=== PATIENT | male | born 1980 | race Caucasian/White ===

== ENCOUNTER → 2021-06-17 07:48 | Outpatient (CLI) | payer BC, SELFPAY ==
--- NOTE | 2021-06-17 08:00 | SPU_PTH ---
PATIENT: MILES SAHU LOC: [facility]#:[id number] AGE/SX: 45/M ROOM: RE06/17/[address]: Dr. Derrick Finch DO : 1980 BED: DIS: SPEC #: [id number] RECD: 06/17/21 10:00 STATUS: JOSE ENRIQUE MAURICIO #: [id number] KRISTIN: 06/17/21 08:[address]: Derrick Finch DEPT: CYTOLOGY RECD BY: Betty Houston ENTERED: 06/17/21 12:33 SP TYPE: Sputum Cy OTHR DR: Babs Yen NP Tissues: Sputum Procedures: Pap Stain (control) Special Stain Group II Special Stain Group I AFB Stain (control) Cytospin Fluid HEADER OPERATION: Not noted PRE-OP DIAGNOSIS: Pulmonary nodules TISSUE SUBMITTED: Sputum for cytology DIAGNOSIS CYTOLOGY Sputum for cytology (cytospin and smears): Negative for malignant cells. See comment. YUAN:thaddeus 06/18/2021 COMMENT Special stain for acid fast bacilli is negative for organisms; matched control is appropriate. CYTOLOGY STUDY Slides are reviewed. CYTOLOGY GROSS Received is 1 ml of thick white mucoid fluid labeled with the patient's name and and designated per the requisition as sputum. Submitted for cytology preparation. / thaddeus 06/17/2021 TC:5 [facility]: [id number]
[2021-06-17 08:16] LABS: Absolute Lymphocyte Count 0.37 X10^3/uL (0.83-4.51); Absolute Neutrophil Count 2.8 X10^3/uL (2.0-7.7); Basophil# 0.06 X10^3/uL; Basophil% 1.5 % (0-1); Eosinophil# 0.24 X10^3/uL; Eosinophils% 6.2 % (0-5); Hemoglobin 14.6 g/dL (13.0-16.5); Lymphocyte # 0.37 X10^3/ul (0.83-4.51); Lymphocyte % 9.5 % (19-41); Mean Corp Hgb Conc 34.8 g/dL (32-36); Mean Corpuscular Hgb 29.9 pg (27.0-32.0); Mean Corpuscular Volume 85.9 fL (80-94); Mean Platelet Vol. 8.5 fl (6.2-12.0); Monocyte# 0.47 X10^3/uL; Monocyte% 12.1 % (0-10); NRBC Flagged by Analyzer 0 % (0-5); Neutrophil # 2.75 X10^3/uL (2.7-7.7); Neutrophil % 70.7 % (47-70); POSITIVE DIFFERENTIAL YES; Platelet Count 209 K/mm3 (150-450); RBC Distribution Width CV 11.9 % (11.6-14.6); Red Blood Count 4.89 M/mm3 (4.6-6.2); White Blood Count 3.9 K/mm3 (4.4-11.0)
[2021-06-17 08:18] LABS: Acid Fast Stain SEE PATHOLOGY REPORT; Cytology, Body Fluid / CSF SEE PATHOLOGY REPORT
[2021-06-17 08:23] LABS: Differential Indicated SCAN CRITERIA MET
[2021-06-18 14:17] LABS: Pathologist Review Reviewed
== END ==
PROVIDERS: PCP Nurse Practitioner Primary Care; Referring Provider Internal Medicine Critical Care Medicine; Visit Provider Internal Medicine Critical Care Medicine
DX: R91.8 Other nonspecific abnormal finding of lung field (principal)
CPT/HCPCS: 36415; 82164; 85025; 86606; 87385; 88108; 88312; 88313

== ENCOUNTER → 2021-07-29 09:23 | Outpatient (CLI) | payer BC, SELFPAY ==
[2021-07-29 09:50] LABS: Absolute Lymphocyte Count 0.42 X10^3/uL (0.83-4.51); Absolute Neutrophil Count 2.9 X10^3/uL (2.0-7.7); Basophil# 0.07 X10^3/uL; Basophil% 1.7 % (0-1); Eosinophil# 0.28 X10^3/uL; Eosinophils% 6.7 % (0-5); Hematocrit 42.7 % (40-54); Hemoglobin 15.3 g/dL (13.0-16.5); Lymphocyte # 0.42 X10^3/ul (0.83-4.51); Lymphocyte % 10.1 % (19-41); Mean Corp Hgb Conc 35.8 g/dL (32-36); Mean Corpuscular Hgb 30.4 pg (27.0-32.0); Mean Corpuscular Volume 84.7 fL (80-94); Mean Platelet Vol. 8.5 fl (6.2-12.0); Monocyte# 0.45 X10^3/uL; Monocyte% 10.8 % (0-10); NRBC Flagged by Analyzer 0 % (0-5); Neutrophil # 2.94 X10^3/uL (2.7-7.7); Neutrophil % 70.5 % (47-70); POSITIVE DIFFERENTIAL YES; Platelet Count 200 K/mm3 (150-450); RBC Distribution Width CV 11.8 % (11.6-14.6); RBC Distribution Width SD 35.8 fl (35.1-43.9); Red Blood Count 5.04 M/mm3 (4.6-6.2); White Blood Count 4.2 K/mm3 (4.4-11.0)
[2021-07-29 09:55] LABS: Differential Indicated SCAN CRITERIA MET
[2021-07-29 10:28] LABS: Platelet Estimate ADEQUATE (ADEQ); Red Cell Morphology NORM C+C NORMAL (NORM C&C)
[2021-08-03 10:49] LABS: Pathologist Review Reviewed
[2021-08-04 10:08] LABS: Alternaria alternata <0.10 kU/L (Class 0); Bermuda Grass <0.10 kU/L (Class 0); Bluegrass, Kentucky <0.10 kU/L (Class 0); Cat Hair/Dander, Standard <0.10 kU/L (Class 0); D farinae Mite <0.10 kU/L (Class 0); D pteronyssinus <0.10 kU/L (Class 0); Dog Epithelia <0.10 kU/L (Class 0); Elm, American White <0.10 kU/L (Class 0); Oak, White <0.10 kU/L (Class 0); Plantain, English <0.10 kU/L (Class 0); Ragweed, Short/Common <0.10 kU/L (Class 0)
[2021-08-04 13:07] LABS: Cytoplasmic Ab (C-ANCA) <1:20 titer (Neg:<1:20)
[2021-08-04 13:42] LABS: Mouse Urine <0.10 kU/L (Class 0)
[2021-08-05 11:51] LABS: Immunoglobulin E 3 IU/mL (6-495); Perinuclear Ab (P-ANCA) <1:20 titer (Neg:<1:20)
== END ==
PROVIDERS: PCP Nurse Practitioner Primary Care; Referring Provider Nurse Practitioner Acute Care; Visit Provider Nurse Practitioner Acute Care
DX: R05.3 Chronic cough (principal)
CPT/HCPCS: 36415; 82785; 85025; 86003; 86256

== ENCOUNTER 2021-10-08 07:49 | Outpatient (CLI) | payer BC, SELFPAY ==
--- NOTE | 2021-10-08 08:22 | CT_ITS ---
STUDY: CT CHEST WITH CONTRAST REASON FOR EXAM: Male, 41 years old. Mediastinal lymphadenopathy and pulmonary nodules RADIATION DOSAGE (If Supplied By Facility): CTDIvol = ( 10.09 ) mGy, DLP = ( 398.26 ) mGycm TECHNIQUE: Transaxial imaging was performed following intravenous administration of IV 100mL Isovue-300. Multiplanar coronal and sagittal images were reformatted. Individualized dose optimization techniques were used for this CT. COMPARISON: None. FINDINGS: There is a 1.2 cm calcified granuloma in the anterior aspect of the right lower lobe abutting the right major fissure. Increased reticular nodular pattern having a miliary appearance more pronounced in the posterior medial aspect of the left upper lobe as well as in the mid lungs. Interstitial fibrosis should be ruled out. There is no demonstrated pleural abnormality. Normal heart and pericardium. Normal mediastinum. Normal hilar regions. Normal enhanced pulmonary arteries. Normal aorta arch and descending thoracic aorta. Normal osseous structures. There is no demonstrated abnormality of the visualized upper abdomen. CT/Chest WITH Contrast IMPRESSION: Reticular nodular pattern with miliary type nodules as described. Interstitial fibrosis should be ruled out. Electronically Signed: Gino Najera MD at 13:24 EST ,
== END 2021-10-08 23:59 | disposition home or self-care (01) ==
PROVIDERS: PCP Nurse Practitioner Primary Care; Referring Provider Internal Medicine Critical Care Medicine; Visit Provider Internal Medicine Critical Care Medicine
DX: R59.0 Localized enlarged lymph nodes (principal); R91.8 Other nonspecific abnormal finding of lung field
CPT/HCPCS: 71260; Q9967

== ENCOUNTER → 2022-09-20 | Outpatient (CLI) | payer BC, SELFPAY ==
--- NOTE | 2022-09-20 18:58 | CT_ITS ---
STUDY: CT CHEST WITH CONTRAST REASON FOR EXAM: Male, 42 years old. Mediastinal lymphadenopathy RADIATION DOSAGE (If Supplied By Facility): CTDIvol = ( 12.24 ) mGy, DLP = ( 436.83 ) mGycm TECHNIQUE: Transaxial imaging was performed following intravenous administration of IV 100mL Isovue-370. Multiplanar coronal and sagittal images were reformatted. Individualized dose optimization techniques were used for this CT. COMPARISON: Comparison is made with prior study of 10/08/2021. FINDINGS: CHEST Stable 1.2; calcified granuloma in the anterior aspect of the right lower lobe abutting the right major fissure. Stable mild reticular nodular pattern in the posterior medial aspect of the left upper lobe. This has improved as compared to prior study. This abuts the left major fissure. There is no demonstrated pleural abnormality. Normal heart and pericardium. Normal mediastinum. Normal hilar regions. Normal unenhanced pulmonary arteries. Normal aorta arch and descending thoracic aorta. There are degenerative changes of the thoracic spine. There is no demonstrated abnormality of the visualized upper abdomen. CT/Chest WITH Contrast IMPRESSION: Mild residual scarring seen in the posterior medial aspect of the left upper lobe adjacent to the left hilum. Stable calcified granuloma in the right lower lobe. Electronically Signed: Gino Najera MD at 14:41 EST ,
== END | disposition home or self-care (01) ==
LOC: CT 18:57
PROVIDERS: PCP Nurse Practitioner Primary Care; Visit Provider Internal Medicine Critical Care Medicine
DX: R59.0 Localized enlarged lymph nodes (principal); R91.8 Other nonspecific abnormal finding of lung field
CPT/HCPCS: 71260; Q9967

== ENCOUNTER → 2022-10-21 | Outpatient (CLI) | payer BC, SELFPAY ==
--- NOTE | 2022-10-25 12:12 | PFT ---
INTRODUCTION: The patient is a 42-year-old male that presents for pulmonary function studies secondary to a diagnosis of chronic cough. Respiratory therapy reported good patient effort. Bronchodilators were used during testing. INTERPRETATION: Forced expiration spirometry demonstrates no evidence of a large airways obstructive ventilatory defect. There was no significant response to aerosolized bronchodilators. Spirograms are of good quality and plateau normally. Body plethysmography was performed and revealed a decreased TLC to 5.94 L, 80% of predicted, indicative of a mild restrictive ventilatory impairment. Diffusing capacity by single breath CO was within normal limits. IMPRESSION: Isolated mild restrictive ventilatory impairment with preserved diffusing capacity.
== END | disposition home or self-care (01) ==
PROVIDERS: PCP Nurse Practitioner Primary Care; Referring Provider Internal Medicine Critical Care Medicine; Visit Provider Internal Medicine Critical Care Medicine
DX: R05.3 Chronic cough (principal)
CPT/HCPCS: 94060; 94726; 94729

== ENCOUNTER → 2022-10-25 | Outpatient (CLI) | payer BC, SELFPAY ==
[2022-10-25 11:20] VITALS: PULSE 100; PULSE 101; PULSE 103; PULSE 79; PULSE 88; PULSE 98; PULSE 99; O2SAT 95; O2SAT 96; O2SAT 98
--- NOTE | 2022-10-26 07:38 | PCM.PSN.6M ---
PSN 6 Minute Walk Test 6 Minute Walk Test 6 Minute Walk Test: 6 Minute Walk Test PSN:6-Minute Walk Test Start: 10/25/22 11:20 Freq: Status: Active Protocol: [id number].6MINW Document 10/25/22 11:20 GUILLERMO (Rec: 10/25/22 11:21 CHARLENEON [id number]) 6 Minute Walk Test Date Performed 10/25/22 Time Performed 11:10 Height 6 ft Weight: 190 lb Weight in Pounds 190.[address]: Derrick Finch Assistive device used: None Pre-test Oxygen Delivery Method Room Air Pulse Ox (%) 98 Pulse Rate (60-100 beats/min) 88 Dyspnea [place] Scale (0-10) 0 Exertion [place] Scale (6-20) 6 1st minute Oxygen Delivery Method Room Air Pulse Ox (%) 96 Pulse Rate (60-100 beats/min) 100 2nd minute Oxygen Delivery Method Room Air Pulse Ox (%) 95 Pulse Rate (60-100 beats/min) 103 H 3rd minute Oxygen Delivery Method Room Air Pulse Ox (%) 96 Pulse Rate (60-100 beats/min) 99 4th minute Oxygen Delivery Method Room Air Pulse Ox (%) 95 Pulse Rate (60-100 beats/min) 101 H 5th minute Oxygen Delivery Method Room Air Pulse Ox (%) 96 Pulse Rate (60-100 beats/min) 98 6th minute Oxygen Delivery Method Room Air Pulse Ox (%) 96 Pulse Rate (60-100 beats/min) 101 H Dyspnea [place] Scale (0-10) 0 Exertion [place] Scale (6-20) 11 Post-test Oxygen Delivery Method Room Air Pulse Ox (%) 96 Pulse Rate (60-100 beats/min) 79 Full Laps Walked 20 Partial Lap, Number of Tiles Walked 31 Total Distance Walked (ft) 1211 Interpretation Interpretation: The patient ambulated 1211 feet over the course of 6 minutes beginning on room air without assistive devices. Pretesting oxygen saturation was noted to be 98% on room air. With ambulation, the joe oxygen saturation was 95%. There was no significant exertional oxygen desaturation. Recommendations Recommendations: There is no indication for the use of supplemental oxygen at this time.
== END | disposition home or self-care (01) ==
LOC: PSN 11:02
PROVIDERS: PCP Nurse Practitioner Primary Care; Referring Provider Internal Medicine Critical Care Medicine; Visit Provider Internal Medicine Critical Care Medicine
DX: R59.0 Localized enlarged lymph nodes (principal)
CPT/HCPCS: 94618

== ENCOUNTER → 2024-12-05 | Outpatient (CLI) | payer BC, SELFPAY ==
--- NOTE | 2024-12-05 17:51 | CT_ITS ---
PROCEDURE: CHEST WITH CONTRAST (CTCW), 12/05/2024 REASON FOR EXAM: CONCERN FOR SARCOIDOSIS TECHNIQUE: CT chest was performed with IV contrast. Multiplanar reformats were generated. CONTRAST: Isovue-300 VOLUME: 100mL RADIATION DOSE SUMMARY: CTDlvol: 16.62+ 12.19 mGy DLP: 459.13 mGycm One or more dose reduction techniques were used (e.g., Automated exposure control, adjustment of the mA and/or kV according to patient size, use of iterative reconstruction technique). COMPARISON: 09/20/2022 and 10/08/2021 FINDINGS: Heart/pericardium: Unremarkable. Aorta: Unremarkable. Pulmonary arteries: Normal in caliber. Lymph nodes: No overt lymphadenopathy. Chronic granulomatous disease.. Lungs/pleura: Similar mild perihilar/suprahilar reticulation bilaterally potentially reflecting postinfectious/inflammatory scarring. Granuloma on the RIGHT. Similar dominant subpleural RIGHT upper lobe nodule, 4 x 5 mm (series 4, image 40).. Similar ground-glass nodule in the superior segment of the RIGHT lower lobe, 8 x 6 mm (image 42). Airways: Unremarkable. Chest wall: Unremarkable. Upper abdomen: Question hepatic steatosis although the appearance may be technical and related to contrast timing. Splenic granulomas. Splenomegaly is partially imaged, at least mild. Musculoskeletal: Unremarkable. CT/Chest WITH Contrast IMPRESSION: 1. No new or enlarging pulmonary nodule identified. Similar nodules up to 7 mm average axial diameter in the RIGHT lower lobe as above compared with 10/08/2021, largest is ground-glass and irregular. Recomme nd continued follow-up to establish 5 years of stability per the Fleischner guidelines for ground-glass nodules of this size, presuming no history of known malignancy or immunosuppression. 2. Question hepatic steatosis although the appearance may be technical. Correl ate for clinical and laboratory evidence of chronic liver disease. 3. Partially imaged mild splenomegaly. 4. Description as above. Reading Location: [id number]
== END | disposition home or self-care (01) ==
PROVIDERS: PCP Nurse Practitioner Primary Care; Referring Provider Nurse Practitioner Family; Visit Provider Nurse Practitioner Family
DX: N28.89 Other specified disorders of kidney and ureter (principal)
CPT/HCPCS: 71260; Q9967

== ENCOUNTER → 2024-12-14 | Outpatient (CLI) | payer BC, SELFPAY ==
[2024-12-16 14:08] LABS: Angiotensin Convert Enzyme 77 U/L (14-82)
== END | disposition home or self-care (01) ==
LOC: LAB 08:12
PROVIDERS: PCP Nurse Practitioner Primary Care; Referring Provider Nurse Practitioner Family; Visit Provider Nurse Practitioner Family
DX: R05.3 Chronic cough (principal)
CPT/HCPCS: 36415; 82164